=== PATIENT | female | born 1990 ===

== ENCOUNTER → 2019-03-19 | Outpatient (CLI) | payer MEDICAID | LOC: OD 15:49 | PROVIDERS: ATTEND Nurse Practitioner Acute Care | DX: R30.0 Dysuria (principal) | CPT/HCPCS: 87086 ==

== ENCOUNTER 2019-03-20 08:34 | Emergency (ER) | payer MEDICAID ==
[2019-03-20 08:39] VITALS: BP 121/59
[2019-03-20] MEDS ORDERED: LIDOCAINE 2% JELLY 30 ML TUBE TOP ONE (09:39)
--- NOTE | 2019-03-20 09:42 | ER Document Report ---
HPI - HPI Patient complains to provider of: rectal pain Time Seen by Provider: 03/20/19 09:17 Onset: Other - 3 days Onset/Duration: Persistent Quality of pain: Sharp Pain Level: 5 Context: Patient presents complaining of pain and blood with bowel movements over the past 3 days. Patient complains of pain with sitting. Patient states there is something swollen to the rectal area. Patient does report a previous history of hemorrhoids. Associated Symptoms: Other - Rectal tenderness. denies: Fever Exacerbated by: Sitting, Other - Bowel movements Relieved by: Denies Similar symptoms previously: Yes Recently seen / treated by doctor: No - ROS ROS below otherwise negative: Yes Systems Reviewed and Negative: Yes All other systems reviewed and negative - CONSTITUTIONAL Constitutional: DENIES: Fever, Chills - GASTROINTESTINAL Gastrointestinal: REPORTS: Black / Bloody Stools - Blood with bowel movements, pa. DENIES: Abdominal Pain, Nausea - REPRODUCTIVE Reproductive: REPORTS: : - DERM Skin Color: Normal Skin Problems: None Past Medical History - General Information source: Patient - Social History Smoking Status: Former Smoker Frequency of alcohol use: None Drug Abuse: None Occupation: [employer] Family History: Reviewed & Not Pertinent Patient has suicidal ideation: No Patient has homicidal ideation: No - Medical History Medical History: Negative Surgical Hx: Negative Vertical Provider Document - CONSTITUTIONAL Agree With Documented VS: Yes Exam Limitations: No Limitations General Appearance: WD/WN, No Apparent Distress - INFECTION CONTROL TRAVEL OUTSIDE OF THE [place] IN LAST 30 DAYS: No - HEENT HEENT: Atraumatic, Normocephalic - NECK Neck: Normal Inspection, Supple - RESPIRATORY Respiratory: Breath Sounds Normal, No Respiratory Distress - CARDIOVASCULAR Cardiovascular: Regular Rate, Regular Rhythm - GI/ABDOMEN Notes: Patient with small external hemorrhoid, no obvious blood after digital rectal exam - BACK Back: Normal Inspection - MUSCULOSKELETAL/EXTREMETIES Musculoskeletal/Extremeties: MAEW - NEURO Level of Consciousness: Awake, Alert, Appropriate Motor/Sensory: No Motor Deficit - DERM Integumentary: Warm, Dry Course - Re-evaluation Re-evalutation: 03/20/19 09:40 BAILEE Jackson as standby during digital rectal exam, no concern for perianal abscess. Patient with small external hemorrhoid. Good return precautions discussed. - Vital Signs Vital signs: Temp Pulse Resp BP Pulse Ox 98.6 F 73 16 121/59 L 100 03/20/19 08:38 03/20/19 08:38 03/20/19 08:38 03/20/19 08:38 03/20/19 08:38 Discharge - Discharge Clinical Impression: Acute hemorrhoid Condition: Stable Disposition: HOME, SELF-CARE Instructions: HC Hemorrhoid Cream ([facility]), Hemorrhoids ([facility]) Additional Instructions: Return immediately for any new or worsening symptoms Followup with your primary care provider, call tomorrow to make a followup appo intment Use Tucks pads after wiping Avoid constipation May apply topical lidocaine jelly 4 times a day as needed for pain relief Prescriptions: Hydrocortisone Acetate [Anusol Hc 25 Mg Supp.Rect] 25 mg KS BID PRN #12 supp.rect PRN Reason: Forms: Return to Work Referrals: MICHELLE ESCOBEDO NP [Primary Care Provider] - Follow up as needed
== END 2019-03-20 09:58 | disposition home or self-care (01) ==
LOC: ER 08:34
DX: K64.4 Residual hemorrhoidal skin tags (principal); K62.89 Other specified diseases of anus and rectum
CPT/HCPCS: 99283; J3490

== ENCOUNTER 2019-07-20 19:20 | Outpatient (CLI) | payer MEDICAID ==
[2019-07-20 20:34] LABS: APPEARANCE,URINE SLIGHTLY-CLOUDY; BILIRUBIN,URINE NEGATIVE (NEGATIVE); COLOR,URINE YELLOW; GLUCOSE, URINE NEGATIVE (NEGATIVE); KETONES,URINE NEGATIVE (NEGATIVE); LEUKOCYTE ESTERASE,URINE SMALL (NEGATIVE); NITRITE,URINE NEGATIVE (NEGATIVE); PROTEIN,URINE NEGATIVE (NEGATIVE); URINE SPECIFIC GRAVITY 1.011; UROBILINOGEN,URINE NEGATIVE mg/dL (<2.0)
[2019-07-20] MEDS ORDERED: DOCUSATE SODIUM 100 MG CAPSULE ONE (20:40)
[2019-07-20 20:48] LABS: URINE AMPHETAMINES SCREEN NEGATIVE; URINE BARBITURATES SCREEN NEGATIVE; URINE BENZODIAZEPINES SCREEN NEGATIVE; URINE COCAINE SCREEN NEGATIVE; URINE MARIJUANA (THC) SCREEN NEGATIVE; URINE METHADONE SCREEN NEGATIVE; URINE PHENCYCLIDINE SCREEN NEGATIVE
[2019-07-20] MEDS ORDERED: DOCUSATE SODIUM 100 MG CAPSULE PO ONE (21:00)
== END 2019-07-20 20:58 | disposition home or self-care (01) ==
LOC: LC 19:20
PROVIDERS: ATTEND Obstetrics & Gynecology
DX: O47.1 False labor at or after 37 completed weeks of gestation (principal); O99.513 Diseases of the respiratory system complicating pregnancy, third trimester; J45.909 Unspecified asthma, uncomplicated; Z3A.38 38 weeks gestation of pregnancy
CPT/HCPCS: 59025; 81005; 80307; J3490

== ENCOUNTER 2019-07-30 21:52 | Inpatient (IN) | payer MEDICAID ==
[2019-07-30] MEDS ORDERED: DINOPROSTONE 10 MG VAGINAL INSERT.SR PV ONE (22:16)
[2019-07-30] MEDS ORDERED: ACETAMINOPHEN 325 MG TABLET PO PRN (22:16)
[2019-07-30] MEDS ORDERED: MAG HYDROX/AL HYDROX/SIMETH SUSP 30 ML UDCUP PO PRN (22:16)
[2019-07-30] MEDS ORDERED: ZOLPIDEM TARTRATE 5 MG TABLET PO PRN (22:16)
[2019-07-30] MEDS ORDERED: RINGERS SOLUTION,LACTATED 1,000 ML IV ONE (22:16)
[2019-07-30] MEDS ORDERED: DINOPROSTONE 10 MG VAGINAL INSERT.SR ONE (22:48)
[2019-07-30 22:57] LABS: ABSOLUTE EOSINOPHILS # (AUTO) 0.1 10^3/uL (0.0-0.6); ABSOLUTE LYMPHOCYTES (AUTO) 1.8 10^3/uL (0.5-4.7); ABSOLUTE MONOCYTES (AUTO) 0.9 10^3/uL (0.1-1.4); ABSOLUTE NEUT (AUTO) 6.1 10^3/uL (1.7-8.2); BASOPHILS % (AUTO) 0.3 % (0-2); EOSINOPHILS % (AUTO) 1.5 % (0-6); HEMATOCRIT 31.8 % (36.0-47.0); LYMPHOCYTES % (AUTO) 19.6 % (13-45); MEAN CORPUSCULAR HEMOGLOBIN 32.6 pg (27.0-33.4); MEAN CORPUSCULAR HGB CONC 34.5 g/dL (32.0-36.0); MEAN CORPUSCULAR VOLUME 95 fl (80-97); MONOCYTES % (AUTO) 10.4 % (3-13); PLATELET COUNT 258 10^3/uL (150-450); RED BLOOD COUNT 3.36 10^6/uL (3.72-5.28); RED CELL DISTRIBUTION WIDTH 15.5 % (11.5-14.0); SEGMENTED NEUTROPHILS % (AUTO) 68.2 % (42-78); TOTAL CELLS COUNTED % (AUTO) 100 %
[2019-07-30 23:02] LABS: APPEARANCE,URINE CLOUDY; BILIRUBIN,URINE NEGATIVE (NEGATIVE); COLOR,URINE AMBER; GLUCOSE, URINE NEGATIVE (NEGATIVE); KETONES,URINE NEGATIVE (NEGATIVE); LEUKOCYTE ESTERASE,URINE LARGE (NEGATIVE); NITRITE,URINE NEGATIVE (NEGATIVE); PROTEIN,URINE 30 mg/dL (NEGATIVE); URINE SPECIFIC GRAVITY 1.026; UROBILINOGEN,URINE NEGATIVE mg/dL (<2.0)
[2019-07-30] MEDS: RINGERS SOLUTION,LACTATED 1,000 ML IV PRN (23:02)
[2019-07-30 23:18] LABS: URINE AMPHETAMINES SCREEN NEGATIVE; URINE BARBITURATES SCREEN NEGATIVE; URINE BENZODIAZEPINES SCREEN NEGATIVE; URINE COCAINE SCREEN NEGATIVE; URINE MARIJUANA (THC) SCREEN NEGATIVE; URINE METHADONE SCREEN NEGATIVE; URINE PHENCYCLIDINE SCREEN NEGATIVE
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
[2019-07-31] MEDS: RINGERS SOLUTION,LACTATED 1,000 ML IV PRN (08:14)
[2019-07-31] MEDS ORDERED: PENICILLIN G-K 5 MILLION UNIT VIAL IV ONE (08:59)
[2019-07-31] MEDS ORDERED: PENICILLIN G-K 5 MILLION UNIT VIAL ONE (09:08)
[2019-07-31] MEDS ORDERED: OXYTOCIN 10 UNIT/ML VIAL ONE (09:58)
[2019-07-31] MEDS ORDERED: OXYTOCIN/0.9 % SODIUM CHLORIDE 30 UNIT/500 ML RTUINJ ONE (09:58)
[2019-07-31] MEDS ORDERED: MISOPROSTOL 0.2 MG TABLET ONE (09:58)
[2019-07-31] MEDS ORDERED: LIDOCAINE 1% INJ-PF (10 MG/ML) 30 ML SDV ONE (09:58)
[2019-07-31] MEDS ORDERED: OXYTOCIN/0.9 % SODIUM CHLORIDE 30 UNIT/500 ML RTUINJ IV PRN ×2 (12:12→17:28)
[2019-07-31] MEDS ORDERED: EPHEDRINE SULFATE INJ 50 MG/1 ML AMPULE ONE (13:52)
[2019-07-31] MEDS ORDERED: BUPIVACAINE HCL 0.25 % INJ/PF (2.5 MG/1 ML) 30 ML VIAL ONE (13:53)
[2019-07-31] MEDS ORDERED: FENTANYL/BUPIVACAINE/NS/PF 300 MCG/150 ML RTUINJ EPI ONE (13:53)
[2019-07-31] MEDS ORDERED: DIBUCAINE 1% OINTMENT 28 GM TP PRN (17:28)
[2019-07-31] MEDS ORDERED: PROMETHAZINE HCL INJ 25 MG/1 ML VIAL IV PRN (17:28)
[2019-07-31] MEDS ORDERED: ZOLPIDEM TARTRATE 5 MG TABLET PO PRN (17:28)
[2019-07-31] MEDS ORDERED: MAGNESIUM HYDROXIDE SUSP 30 ML UDCUP PO PRN (17:28)
[2019-07-31] MEDS ORDERED: BENZOCAINE/MENTHOL AEROSOL SPRAY 56 ML TOP PRN (17:28)
[2019-07-31] MEDS ORDERED: PROMETHAZINE HCL 25 MG SUPP.RECT PR PRN (17:28)
[2019-07-31] MEDS ORDERED: GLYCERIN/WITCH HAZEL LEAF 1 EACH MED..WIPE TP PRN (17:28)
[2019-07-31] MEDS ORDERED: DIPHENHYDRAMINE HCL 25 MG CAPSULE PO PRN (17:28)
[2019-07-31] MEDS ORDERED: PROMETHAZINE HCL 25 MG TABLET PO PRN (17:28)
[2019-07-31] MEDS ORDERED: MEASLES,MUMPS&RUBELLA VACC/PF 0.5 ML VIAL SUBCUT PRN (17:28)
[2019-07-31] MEDS ORDERED: NA PHOS,M-B/NA PHOS,DI-BA (ADULT) 133 ML ENEMA PR PRN (17:28)
[2019-07-31] MEDS ORDERED: PSEUDOEPHEDRINE HCL 30 MG TABLET PO PRN (17:28)
[2019-07-31] MEDS ORDERED: DIPH/PERTUSS(ACELL)/TETANUS VAC/PF 0.5 ML SYR (>=10YO) IM PRN (17:28)
[2019-07-31] MEDS ORDERED: ACETAMINOPHEN WITH CODEINE #3 TABLET PO PRN (17:28)
[2019-07-31] MEDS ORDERED: ACETAMINOPHEN 650 MG SUPP.RECT PR PRN (17:28)
[2019-07-31] MEDS ORDERED: FERROUS SULFATE 325 MG TABLET PO ONE (18:26)
[2019-07-31] MEDS ORDERED: DOCUSATE SODIUM 100 MG CAPSULE ONE (18:26)
[2019-07-31] MEDS: FERROUS SULFATE 325 MG TABLET PO SCH (18:33)
[2019-07-31] MEDS: DOCUSATE SODIUM 100 MG CAPSULE PO SCH (18:33)
--- NOTE | 2019-07-31 18:40 | Delivery Summary ---
Del Sum A-C Datetime Report Generated by CPN: 07/31/2019 18:40 DELIVERY PERSONNEL DELIVERY PERSONNEL: [id number] Delivery Doctor:: Pierre Morton MD Labor and Delivery Nurse:: Mary Arevalo RNcuring supervisor Nurse:: Maliha Sharma RN Nursery Nurse:: Dinora Underwood RN Nursery Nurse:: Pallavi Curtis RN Biomathematician/CONTROL ROOM SUPERVISOR: Carine Ricardo, INDEPENDENT JEWELER MATERNAL INFORMATION Delivery Anesthesia: Epidural Medications After Delivery: Pitocin Bolus-Please Comment; Pitocin 30 Units in 500ml NS/D5W Meds After Delivery Comment: Pitocin 30 units in 500 ml NS Delivery QBL: 50 Maternal Complications: None LABOR SUMMARY EDC: 08/03/2019 00:00 No. Babies in Womb: 1 Attempted: No Labor Anesthesia: Epidural LABOR INFORMATION Reason for Induction: Intrauterine Growth Retardation Onset of Labor: 07/31/2019 15:26 Complete Dilatation: 07/31/2019 17:17 Cervical Ripening Agents: Cervidil Oxytocin: Augmentation Group B Beta Strep: Negative Antibiotics # of Doses: n/a Antibiotics Time of Last Dose: n/a Name of Antibiotic Given: n/a Steroids Given: None MEMBRANES Membranes Rupture Method: Artificial Rupture of Membranes: 07/31/2019 15:26 Length of Rupture (hr): 1.90 Amniotic Fluid Color: Clear Amniotic Fluid Amount: Small Amniotic Fluid Odor: Normal STAGES OF LABOR Stage 1 hr: 1 Stage 1 min: 51 Stage 2 hr: 0 Stage 2 min: 3 Stage 3 hr: 0 Stage 3 min: 4 Total Time in Labor hr: 1 Total Time in Labor min: 58 VAGINAL DELIVERY Episiotomy: None Laceration #1: None Laceration Extension #1: N/A Laceration Repair: Not Applicable Sponge Count Correct: N/A Sharps Count Correct: N/A CSECTION DELIVERY Primary Indication: N/A Secondary Indication: N/A CSection Incidence: N/A Labor: N/A Elective: N/A CSection Incision: N/A BABY A INFORMATION Delivery Date/Time: 07/31/2019 17:20 Method of Delivery: Vaginal Nurse Controlled Delivery: No Born in Route : No : N/A Forceps: N/A Vacuum Extraction: N/A Shoulder Dystocia : No PRESENTATION/POSITION BABY A Presentation: Cephalic Cephalic Presentation: Vertex Vertex Position: Left Occipital Anterior Breech Presentation: N/A PLACENTA INFORMATION BABY A Placenta Delivery Time : 07/31/2019 17:24 Placenta Method of Delivery: Spontaneous Placenta Status: Delivered SCORES BABY A Heart Rate 1 min: >100 bpm Resp Effort 1 min: Good Cry Reflex Irritability 1 min: Cough or Sneeze or Pulls Away Muscle Tone 1 min: Active Motion Color 1 min: Blue/Pale Resuscitation Effort 1 min: Tactile Stimulation SCORE 1 MIN: 8 Heart Rate 5 min: >100 bpm Resp Effort 5 min: Good Cry Reflex Irritability 5 min: Cough or Sneeze or Pulls Away Muscle Tone 5 min: Active Motion Color 5 min: Body [place], Extremities Blue Resuscitation Effort 5 min: N/A SCORE 5 MIN: 9 INFANT INFORMATION BABY A Gestational Age at Delivery: 39.4 Gestational Status: Full Term- 39- 40.6 Weeks Outcome : Liveborn Infant Condition : Stable Sex: Male IDENTIFICATION BABY A Verification Date/Time: 07/31/2019 17:51 ID Band Number: [id number] Mother's Name Verified: Yes RN Verifying Infant: Funmilayo, RN Additional Verifying Personnel: Claudia Briejeevan, US WEIGHT/LENGTH BABY A Birthweight (gm): 2848 Infant Weight (lb): 6 Weight (oz): 4 Infant Length (in): 20.25 Length (cm): 51.44 CORD INFORMATION BABY A No. Cord Vessels: 3 Nuchal Cord : Around Neck x1, Tight Cord Blood Taken: Yes-For Storage (Mom's Blood type +) Suction: None ASSESSMENT BABY A Complications: None Physical Findings at Delivery: Within Normal Limits Skin to Skin: No Transferred To: Remains with Mother BABY B INFORMATION : N/A SIGNATURES Signature: with User ID: [email or web address]
[2019-07-31] MEDS: IBUPROFEN 800 MG TABLET PO SCH (23:44)
[2019-07-31] MEDS: FAMOTIDINE 20 MG TABLET PO SCH (23:44)
[2019-08-01] MEDS: IBUPROFEN 800 MG TABLET PO SCH ×3 (05:17→22:13)
[2019-08-01 07:57] LABS: HEMATOCRIT 29.4 % (36.0-47.0); HEMOGLOBIN 9.8 g/dL (12.0-15.5); MEAN CORPUSCULAR HGB CONC 33.1 g/dL (32.0-36.0); MEAN CORPUSCULAR VOLUME 97 fl (80-97); PLATELET COUNT 215 10^3/uL (150-450); RED BLOOD COUNT 3.05 10^6/uL (3.72-5.28); RED CELL DISTRIBUTION WIDTH 15.8 % (11.5-14.0); WHITE BLOOD COUNT 11.9 10^3/uL (4.0-10.5)
[2019-08-01] MEDS: PRENATAL VITAMIN W DHA CAPSULE PO SCH (09:50)
[2019-08-01] MEDS: FERROUS SULFATE 325 MG TABLET PO SCH ×2 (09:51→17:52)
[2019-08-01] MEDS: SENNOSIDES/DOCUSATE 8.6-50 MG 1 EACH TABLET PO SCH (09:52)
[2019-08-01] MEDS: DOCUSATE SODIUM 100 MG CAPSULE PO SCH ×2 (09:52→17:52)
--- NOTE | 2019-08-01 14:51 | PDOC PROGRESS REPORT ---
Subjective-OB Progress Note for:: 08/01/19 Subjective: 29yo G2 now P2 s/p ppd 1 . Ambulating and voiding without difficulty. Reports pain well controlled with medication, denies any concerns at this time Physical Exam (OB) Vital Signs: Temp Pulse Resp BP Pulse Ox 97.8 F 69 20 100/55 L 100 08/01/19 08:00 08/01/19 08:00 08/01/19 08:00 08/01/19 08:00 08/01/19 08:00 Intake & Output 07/31/19 08/01/19 08/02/19 06:59 06:59 06:59 Intake Total 1000 Output Total 400 Balance 1000 -400 Weight 77.2 kg - General General Appearance: Appears well In distress: None - PIH/Pre-Eclampsia Clonus: Negative Headache: Absent Epigastric Pain: No Visual Changes: No - Episiotomy/Laceration Site Condition: N/A - Lochia Lochia Amount: Scant < 10 ml Lochia Color: Rubra/Red - Abdomen Description: Soft Hernia Present: No Fundal Description: Firm Fundal Height: u/u - u/2 - Respiratory Respiratory Status: No respiratory distress - Extremities Upper extremity: Normal inspection Lower extremities: Normal inspection - Neurological Cognition: Normal Orientation: AAOx4 - Psychological Associated symptoms: Normal affect, Normal mood Objective-Diagnostic Laboratory: 08/01/19 07:05 08/01/19 07:05 WBC 11.9 H RBC 3.05 L Hgb 9.8 L Hct 29.4 L MCV 97 MCH 32.0 MCHC 33.1 RDW 15.8 H Plt Count 215 Assessment and Plan(PN) - Assessment and Plan (1) Vaginal delivery Is this a current diagnosis for this admission?: Yes Plan: routine pp care (2) Acute blood loss anemia Is this a current diagnosis for this admission?: Yes Plan: increased dietary iron and FeSO4 BID (3) Encounter for induction of labor Is this a current diagnosis for this admission?: Yes Plan: delivered - Time Spent with Patient Time with patient: Less than 15 minutes Medications reviewed and adjusted accordingly: Yes - Disposition Anticipated Discharge: Home Within: within 24 hours
[2019-08-01] MEDS ORDERED: PROMETHAZINE HCL INJ 25 MG/1 ML VIAL IV PRN (15:30)
[2019-08-01] MEDS ORDERED: DIPH/PERTUSS(ACELL)/TETANUS VAC/PF 0.5 ML SYR (>=10YO) IM PRN (15:30)
[2019-08-01] MEDS ORDERED: MEASLES,MUMPS&RUBELLA VACC/PF 0.5 ML VIAL SUBCUT PRN (15:30)
[2019-08-01] MEDS: FAMOTIDINE 20 MG TABLET PO SCH (22:14)
[2019-08-02] MEDS: IBUPROFEN 800 MG TABLET PO SCH ×2 (05:16→13:30)
[2019-08-02] MEDS: FAMOTIDINE 20 MG TABLET PO SCH ×2 (09:41→13:17)
[2019-08-02] MEDS: PRENATAL VITAMIN W DHA CAPSULE PO SCH (09:41)
[2019-08-02] MEDS: FERROUS SULFATE 325 MG TABLET PO SCH (09:41)
[2019-08-02] MEDS: SENNOSIDES/DOCUSATE 8.6-50 MG 1 EACH TABLET PO SCH (09:41)
[2019-08-02] MEDS: DOCUSATE SODIUM 100 MG CAPSULE PO SCH (09:41)
--- NOTE | 2019-08-02 12:02 | PDOC DISCHARGE SUMMARY ---
Impression - Admit/DC Date/PCP Admission Date/Primary Care Provider: 07/30/19 21:52 MICHELLE ESCOBEDO NP Discharge Date: 08/02/19 - Discharge Diagnosis (1) Acute blood loss anemia Is this a current diagnosis for this admission?: Yes (2) Encounter for induction of labor Is this a current diagnosis for this admission?: Yes (3) Vaginal delivery Is this a current diagnosis for this admission?: Yes - Additional Information Discharge Diet: Regular Discharge Activity: Balance Activity w/Rest, Pelvic Rest Referrals: MICHELLE ESCOBEDO NP [Primary Care Provider] - Prescriptions: Ibuprofen [Motrin 800 mg Tablet] 800 mg PO Q8HP PRN #60 tablet PRN Reason: Home Medications: Albuterol Sulfate [Proventil HFA] 2 inh IH Q4 PRN 07/27/12 Ibuprofen [Motrin 800 mg Tablet] 800 mg PO Q8HP PRN #60 tablet 08/02/19 Results Laboratory Results: WBC 11.9 10^3/uL (4.0-10.5) H 08/01/19 07:05 RBC 3.05 10^6/uL (3.72-5.28) L 08/01/19 07:05 Hgb 9.8 g/dL (12.0-15.5) L 08/01/19 07:05 Hct 29.4 % (36.0-47.0) L 08/01/19 07:05 MCV 97 fl (80-97) 08/01/19 07:05 MCH 32.0 pg (27.0-33.4) 08/01/19 07:05 MCHC 33.1 g/dL (32.0-36.0) 08/01/19 07:05 RDW 15.8 % (11.5-14.0) H 08/01/19 07:05 Plt Count 215 10^3/uL (150-450) 08/01/19 07:05 Lymph % (Auto) 19.6 % (13-45) 07/30/19 22:43 Russell % (Auto) 10.4 % (3-13) 07/30/19 22:43 Eos % (Auto) 1.5 % (0-6) 07/30/19 22:43 Baso % (Auto) 0.3 % (0-2) 07/30/19 22:43 Absolute Neuts (auto) 6.1 10^3/uL (1.7-8.2) 07/30/19 22:43 Absolute Lymphs (auto) 1.8 10^3/uL (0.5-4.7) 07/30/19 22:43 Absolute Monos (auto) 0.9 10^3/uL (0.1-1.4) 07/30/19 22:43 Absolute Eos (auto) 0.1 10^3/uL (0.0-0.6) 07/30/19 22:43 Absolute Basos (auto) 0.0 10^3/uL (0.0-0.2) 07/30/19 22:43 Seg Neutrophils % 68.2 % (42-78) 07/30/19 22:43 Urine Color JUAN FRANCISCO 07/30/19 22:03 Urine Appearance CLOUDY 07/30/19 22:03 Urine pH 6.0 (5.0-9.0) 07/30/19 22:03 Ur Specific [place] 1.026 07/30/19 22:03 Urine Protein 30 mg/dL (NEGATIVE) H 07/30/19 22:03 Urine Glucose (UA) NEGATIVE mg/dL (NEGATIVE) 07/30/19 22:03 Urine Ketones NEGATIVE mg/dL (NEGATIVE) 07/30/19 22:03 Urine Blood NEGATIVE (NEGATIVE) 07/30/19 22:03 Urine Nitrite NEGATIVE (NEGATIVE) 07/30/19 22:03 Urine Bilirubin NEGATIVE (NEGATIVE) 07/30/19 22:03 Urine Urobilinogen NEGATIVE mg/dL (<2.0) 07/30/19 22:03 Ur Leukocyte Esterase LARGE (NEGATIVE) H 07/30/19 22:03 Urine Ascorbic Acid 40 (NEGATIVE) H 07/30/19 22:03 Urine Opiates Screen NEGATIVE 07/30/19 22:03 Urine Methadone Screen NEGATIVE 07/30/19 22:03 Ur Barbiturates Screen NEGATIVE 07/30/19 22:03 Ur Phencyclidine Scrn NEGATIVE 07/30/19 22:03 Ur Amphetamines Screen NEGATIVE 07/30/19 22:03 U Benzodiazepines Scrn NEGATIVE 07/30/19 22:03 Urine Cocaine Screen NEGATIVE 07/30/19 22:03 U Marijuana (THC) Screen NEGATIVE 07/30/19 22:03 RPR NONREACTIVE (NONREACTIVE) 07/30/19 22:43 HSV I IgG Ab 1.23 index (0.00-0.90) H 07/31/19 18:59 HSV II Specific Ab 7.09 index (0.00-0.90) H 07/31/19 18:59 Blood Type A POSITIVE 07/30/19 22:43 Antibody Screen NEGATIVE 07/30/19 22:43 Plan Goals: follow up in 4 weeks at [facility] for post check
[2019-08-02 12:07] VITALS: BP 100/55
== END 2019-08-02 15:09 | disposition home or self-care (01) | DRG 807 ==
LOC: LR 21:52 → 2S 07-31 20:13
PROVIDERS: ADMIT Obstetrics & Gynecology; ATTEND Obstetrics & Gynecology Gynecology
PROC: 10E0XZZ Delivery of Products of Conception, External Approach (ICD-10-PCS; principal; 2019-07-31)
DX: O36.5930 Maternal care for other known or suspected poor fetal growth, third trimester, not applicable or unspecified (principal); Z37.0 Single live birth; O69.1XX0 Labor and delivery complicated by cord around neck, with compression, not applicable or unspecified; O99.52 Diseases of the respiratory system complicating childbirth; O99.02 Anemia complicating childbirth; D64.9 Anemia, unspecified; J45.909 Unspecified asthma, uncomplicated; Z86.19 Personal history of other infectious and parasitic diseases; Z3A.39 39 weeks gestation of pregnancy
CPT/HCPCS: 1967; 36415; 80307; 81005; 85025; 85027; 86592; 86695; 86696; 86850; 86900; 86901; 94760; J2540; J2590; J3010; J3490